=== PATIENT | male | born 1995 | race Caucasian/White ===

== ENCOUNTER 2022-09-06 20:24 | Emergency (ER) | payer BC ==
[2022-09-06] MEDS ORDERED: TORAdol 30 mg Injection IV ONE (20:48)
[2022-09-06] MEDS ORDERED: Sodium Chloride 0.9% 1000 ML 1,000 ML IV STA (20:48)
[2022-09-06] MEDS ORDERED: Zofran 4 MG/2 ML VIAL IV ONE (20:48)
[2022-09-06] MEDS ORDERED: Zofran 4 MG/2 ML VIAL ONE (20:54)
[2022-09-06] MEDS ORDERED: Sodium Chloride 0.9% 1000 ML 1,000 ML ONE (20:55)
[2022-09-06] MEDS ORDERED: TORAdol 30 mg Injection ONE (20:55)
[2022-09-06 20:58] LABS: BASOPHIL % 0.5 % (0.0-0.4); Basophil (Absolute #) 0.05 x10^3/uL (0-0.4); Eosinophil % 2.4 % (0.00-5.0); Eosinophil (Absolute #) 0.22 x10^3/uL (0-0.5); Hematocrit 43.2 % (42-50); Hemoglobin 15.2 g/dL (12.5-18.0); IMMATURE GRAN # 0.02 x10^3u/L (0.00-0.03); IMMATURE GRAN % 0.2 % (0.00-0.4); Lymphocyte (Absolute #) 1.29 x10^3/uL (1.0-4.6); Lymphocytes % 14.1 % (24.0-44.0); Mean Cell Volume 81.8 fL (78-100); Mean Corpuscular Hemoglobin 28.8 pg (26-32); Mean Corpuscular Hgb Concent. 35.2 g/dL (32-36); Mean Platelet Volume 10.3 fL (7.5-11.0); Monocyte (Absolute #) 0.79 x10^3/uL (0.0-1.3); Monocytes % 8.6 % (0.0-12.0); Neutrophil % 74.2 % (36.0-66.0); Platelet Count 214 x10^3/uL (150-450); Red Blood Count 5.28 x10^6/uL (4.1-5.6); White Blood Count 9.2 x10^3/uL (4.0-10.5)
[2022-09-06 21:08] LABS: ALBUMIN 3.8 g/dL (3.5-5.0); ALKALINE PHOSPHATASE 147 U/L (38-126); ANION GAP 16.7 MEQ/L (5-15); BLOOD UREA NITROGEN 28 mg/dL (9-20); CHLORIDE 91 mmol/L (98-107); Calcium 9.3 mg/dL (8.4-10.2); Carbon Dioxide 28 mmol/L (22-30); Creatinine 1 1.17 mg/dL (0.66-1.25); EST GLOMERULAR FILTRATION RATE > 60.0 ML/MIN; Glucose 431 mg/dL (74-106); LIPASE 703 U/L (23-300); Potassium 4.3 mmol/L (3.5-5.1); SGOT/AST 37 U/L (17-59); SGPT/ALT 66 U/L (0-50); SODIUM 132 mmol/L (137-145); Total Protein 6.8 g/dL (6.3-8.2)
--- NOTE | 2022-09-06 21:18 | ERPHSYRPT ---
- History of Present Illness Time Seen by Provider: 09/06/22 20:26 Source: patient Exam Limitations: no limitations Patient Subjective Stated Complaint: pt states he has not been feeling well for last few days and today has been having chest pain at work since approx 1800. states pain is in rt chest and pressure with intermittent sharp pain. Triage Nursing Assessment: pt alert and oriented, answers questions approp. pt ambulates into room with steady gait. skin warm and dry. heart rate 98 sinus rhythm on monitor, sinus rhythm on monitor. peripheral pulse intact. Physician History: 27-year-old fairly healthy male presented in the ER with chief complaint of chest pain. Patient reports he has not been feeling well for the last couple of days, had some nausea but no vomiting. Feels weak fatigued tired and dehydr ated. Earlier he started to have some pain in the right lower chest without difficulty breathing or palpitations. Denies any abdominal pain or back pain. Patient has history of type I diabetic mellitus and neuropathy and complaining of increasing pain all over the extremities. Timing/Duration: day(s) (2), gradual onset, worse Severity: moderate Associated Symptoms: nausea, chest pain, headaches, malaise, weakness, No s hortness of breath Allergies/Adverse Reactions: cefaclor [From [facility]] Allergy (Intermediate, Verified 09/06/22 20:47) Penicillins Allergy (Intermediate, Verified 09/06/22 20:47) Home Medications: Escitalopram Oxalate 20 mg PO DAILY 09/06/22 [History] Gabapentin [Neurontin ] 300 mg PO BID PRN PRN 09/06/22 [History] Insulin Glargine,Hum.rec.anlog [Basaglar Kwikpen U-100] 32 unit SQ BID 09/06/22 [History] buPROPion HCL [Bupropion HCl] 100 mg PO DAILY 09/06/22 [History] Hx Tetanus, Diphtheria Vaccination/Date Given: No (unsure) Hx Influenza Vaccination/Date Given: No Hx Pneumococcal Vaccination/Date Given: No Immunizations Up to Date: No Travel Risk - International Travel Have you traveled outside of the country in past 3 weeks: No - Coronavirus Screening Are you exhibiting any of the following symptoms?: No Close contact with a COVID-19 positive Pt in past 14-21 Days: No - Vaccine Status Have you recieved a Covid-19 vaccination: No - Review of Systems Constitutional: Fatigue, Weakness Eyes: No Symptoms Ears, Nose, & Throat: No Symptoms Respiratory: No Symptoms Cardiac: Chest Pain Abdominal/Gastrointestinal: Nausea Genitourinary Symptoms: No Symptoms Musculoskeletal: Myalgias Skin: No Symptoms Neurological: No Symptoms Psychological: No Symptoms Endocrine: No Symptoms Hematologic/Lymphatic: No Symptoms Immunological/Allergic: No Symptoms - Past Medical History Neurological History: Peripheral Neuropathy Endocrine Medical History: Diabetes Type I Psycho-Social History: Anxiety, Depression Other Medical History: heart murmer - Past Surgical History Past Surgical History: Yes Gastrointestinal: Hernia Repair Male Surgical History: Testicular Surgery Other Surgical History: testicular torsion, hernia repair, joyce fundoplication - Social History Smoking Status: Former smoker Exposure to second hand smoke: Yes Drug Use: none Patient Lives Alone: Yes - Nursing Vital Signs Nursing Vital Signs: Initial Vital Signs Temperature 98.5 F 09/06/22 20:25 Pulse Rate 95 H 09/06/22 20:25 Respiratory Rate 16 09/06/22 20:25 Blood Pressure 128/77 09/06/22 20:25 O2 Sat by Pulse Oximetry 95 09/06/22 20:25 Pain Scale Pain Intensity 6 - Physical Exam General Appearance: no apparent distress, alert Eye Exam: PERRL/EOMI Ears, Nose, Throat Exam: normal ENT inspection, TMs normal, pharynx normal, moist mucous membranes Neck Exam: normal inspection, non-tender, supple, full range of motion Respiratory Exam: normal breath sounds, lungs clear Cardiovascular Exam: regular rate/rhythm, normal heart sounds Gastrointestinal/Abdomen Exam: soft, normal bowel sounds, No tenderness, No distention, No guarding Back Exam: normal inspection, normal range of motion Extremity Exam: normal inspection, normal range of motion, pelvis stable Neurologic Exam: alert, oriented x 3, cooperative, wire inserter II-XII nml as tested, normal mood/affect, nml cerebellar function, nml station & gait, sensation nml Skin Exam: normal color SpO2 Interpretation: normal SpO2: 95 O2 Delivery: Room Air - Course EKG Interpreted by Me: RATE (93), Sinus Rhythm, NORMAL AXIS, prolonged QT interval, Non-specific ST Changes, Other (Nonspecific T wave changes) Ordered Tests: Active Orders 24 hr Category Date Time Status EKG-ER Only STAT Care 09/06/22 20:48 Active IV Insertion STAT Care 09/06/22 20:48 Active ABDOMEN AND PELVIS W/0 CONTRAS [CT] Stat Exams 09/06/22 22:45 Completed CHEST 1 VIEW (PORTABLE) Stat Exams 09/06/22 20:48 Taken CBC W DIFF Stat Lab 09/06/22 20:55 Completed CMP Stat Lab 09/06/22 20:55 Completed CULTURE,URINE Stat Lab 09/06/22 22:56 Received LIPASE Stat Lab 09/06/22 20:55 Completed Lactic Acid Stat Lab 09/06/22 21:04 Completed POCT GLUCOSE Stat Lab 09/06/22 23:47 Completed TROPONIN Q4H Lab 09/06/22 20:55 Completed TROPONIN Q4H Lab 09/07/22 01:00 Ordered TROPONIN Q4H Lab 09/07/22 05:00 Ordered UA W/RFX UR CULTURE Stat Lab 09/06/22 22:56 Completed Medication Summary Discontinued Medications Generic Name Dose Route Start Last Admin Trade Name Freq PRN Reason Stop Dose Admin Sodium Chloride 1,000 mls @ 999 mls/hr 09/06/22 20:48 09/06/22 22:57 Sodium Chloride 0.9% 1000 Ml IV 09/06/22 21:48 Infused .Q1H1M STA Infusion Sodium Chloride Confirm 09/06/22 20:55 Sodium Chloride 0.9% 1000 Ml Administered 09/06/22 20:56 Dose 1,000 mls @ ud .ROUTE .STK-MED ONE Insulin Human Regular 6 unit 09/07/22 00:27 Insulin Regular, Human 1 Unit IV 09/07/22 00:28 STAT ONE Ketorolac Tromethamine 30 mg 09/06/22 20:48 09/06/22 20:59 Ketorolac Tromethamine 30 Mg/Ml Inj IV 09/06/22 20:49 30 mg STAT ONE Administration Ketorolac Tromethamine Confirm 09/06/22 20:55 Ketorolac Tromethamine 30 Mg/Ml Inj Administered 09/06/22 20:56 Dose 30 mg .ROUTE .STK-MED ONE Ondansetron HCl 4 mg 09/06/22 20:48 09/06/22 20:59 Ondansetron Hcl 4 Mg/2 Ml Vial IV 09/06/22 20:49 4 mg STAT ONE Administration Ondansetron HCl Confirm 09/06/22 20:54 Ondansetron Hcl 4 Mg/2 Ml Vial Administered 09/06/22 20:55 Dose 4 mg .ROUTE .K-MED ONE Lab/Rad Data: Laboratory Result Diagrams 09/06/22 20:55 09/06/22 20:55 Laboratory Results 09/06/22 09/06/22 09/06/22 Range/Units 23:47 22:56 21:04 WBC (4.0-10.5) x10^3/uL RBC (4.1-5.6) x10^6/uL Hgb (12.5-18.0) g/dL Hct (42-50) % MCV (78-100) fL MCH (26-32) pg MCHC (32-36) g/dL RDW (11.5-14.0) % Plt Count (150-450) x10^3/uL MPV (7.5-11.0) fL Gran % (36.0-66.0) % Immature Gran % (Auto) (0.00-0.4) % Nucleat RBC Rel Count (0.00-0.1) % Eos # (Auto) (0-0.5) x10^3/uL Immature Gran # (Auto) (0.00-0.03) x10^3u/L Absolute Lymphs (auto) (1.0-4.6) x10^3/uL Absolute Monos (auto) (0.0-1.3) x10^3/uL Absolute Nucleated RBC (0.00-0.01) x10^3u/L Lymphocytes % (24.0-44.0) % Monocytes % (0.0-12.0) % Eosinophils % (0.00-5.0) % Basophils % (0.0-0.4) % Absolute Granulocytes (1.4-6.9) x10^3/uL Basophils # (0-0.4) x10^3/uL Sodium (137-145) mmol/L Potassium (3.5-5.1) mmol/L Chloride (98-107) mmol/L Carbon Dioxide (22-30) mmol/L Anion Gap (5-15) MEQ/L BUN (9-20) mg/dL Creatinine (0.66-1.25) mg/dL Estimated GFR ML/MIN Glucose (74-106) mg/dL POC Glucometer 369 H (74 to 106) mg/dL Lactic Acid 1.6 (0.4-2.0) Calcium (8.4-10.2) mg/dL Total Bilirubin (0.2-1.3) mg/dL AST (17-59) U/L ALT (0-50) U/L Alkaline Phosphatase (38-126) U/L Troponin I (0.000-0.034) ng/mL Serum Total Protein (6.3-8.2) g/dL Albumin (3.5-5.0) g/dL Lipase (23-300) U/L Urine Color Yellow (Yellow) Urine Appearance Clear (Clear) Urine pH 5.5 (4.6-8.0) Ur Specific [place] 1.025 (1.005-1.030) Urine Protein 100 A (Negative) Urine Glucose (UA) >=1000 A (Negative) mg/dL Urine Ketones Trace A (Negative) Urine Blood Trace (Negative) Urine Nitrite Negative (Negative) Urine Bilirubin Negative (Negative) Urine Urobilinogen 1.0 A (0.2) mg/dL Ur Leukocyte Esterase Negative (Negative) U Hyaline Cast (Auto) NONE SEEN (0-2) /LPF Urine Microscopic RBC 0-2 (0-5) /HPF Urine Microscopic WBC 0-2 (0-5) /HPF Ur Epithelial Cells None Seen (None Seen) /HPF Urine Bacteria None Seen (None Seen) /HPF Urine Culture Reflexed YES (NO) 09/06/22 09/06/22 09/06/22 Range/Units 20:55 20:55 20:55 WBC 9.2 (4.0-10.5) x10^3/uL RBC 5.28 (4.1-5.6) x10^6/uL Hgb 15.2 (12.5-18.0) g/dL Hct 43.2 (42-50) % MCV 81.8 (78-100) fL MCH 28.8 (26-32) pg MCHC 35.2 (32-36) g/dL RDW 13.0 (11.5-14.0) % Plt Count 214 (150-450) x10^3/uL MPV 10.3 (7.5-11.0) fL Gran % 74.2 H (36.0-66.0) % Immature Gran % (Auto) 0.2 (0.00-0.4) % Nucleat RBC Rel Count 0.0 (0.00-0.1) % Eos # (Auto) 0.22 (0-0.5) x10^3/uL Immature Gran # (Auto) 0.02 (0.00-0.03) x10^3u/L Absolute Lymphs (auto) 1.29 (1.0-4.6) x10^3/uL Absolute Monos (auto) 0.79 (0.0-1.3) x10^3/uL Absolute Nucleated RBC 0.00 (0.00-0.01) x10^3u/L Lymphocytes % 14.1 L (24.0-44.0) % Monocytes % 8.6 (0.0-12.0) % Eosinophils % 2.4 (0.00-5.0) % Basophils % 0.5 (0.0-0.4) % Absolute Granulocytes 6.80 (1.4-6.9) x10^3/uL Basophils # 0.05 (0-0.4) x10^3/uL Sodium 132 L (137-145) mmol/L Potassium 4.3 (3.5-5.1) mmol/L Chloride 91 L (98-107) mmol/L Carbon Dioxide 28 (22-30) mmol/L Anion Gap 16.7 H (5-15) MEQ/L BUN 28 H (9-20) mg/dL Creatinine 1.17 (0.66-1.25) mg/dL Estimated GFR > 60.0 ML/MIN Glucose 431 H (74-106) mg/dL POC Glucometer (74 to 106) mg/dL Lactic Acid (0.4-2.0) Calcium 9.3 (8.4-10.2) mg/dL Total Bilirubin 0.90 (0.2-1.3) mg/dL AST 37 (17-59) U/L ALT 66 H (0-50) U/L Alkaline Phosphatase 147 H (38-126) U/L Troponin I < 0.012 (0.000-0.034) ng/mL Serum Total Protein 6.8 (6.3-8.2) g/dL Albumin 3.8 (3.5-5.0) g/dL Lipase 703 H (23-300) U/L Urine Color (Yellow) Urine Appearance (Clear) Urine pH (4.6-8.0) Ur Specific [place] (1.005-1.030) Urine Protein (Negative) Urine Glucose (UA) (Negative) mg/dL Urine Ketones (Negative) Urine Blood (Negative) Urine Nitrite (Negative) Urine Bilirubin (Negative) Urine Urobilinogen (0.2) mg/dL Ur Leukocyte Esterase (Negative) U Hyaline Cast (Auto) (0-2) /LPF Urine Microscopic RBC (0-5) /HPF Urine Microscopic WBC (0-5) /HPF Ur Epithelial Cells (None Seen) /HPF Urine Bacteria (None Seen) /HPF Urine Culture Reflexed (NO) - Progress Progress: improved, re-examined Progress Note: 09/07/22 00:28 27-year-old fairly healthy male presented in the ER with chief complaint of chest pain. Patient reports he has not been feeling well for the last couple of days, had some nausea but no vomiting. Feels weak fatigued tired and dehydrated. Earlier he started to have some pain in the right lower chest without difficulty breathing or palpitations. Denies any abdominal pain or back pain. Patient has history of type I diabetic mellitus and neuropathy and complaining of increasing pain all over the extremities. Is given fluids along with symptomatic treatment, on reevaluation feeling much better. Work-up showed normal white count, chemistries showed some element of dehydration and elevated glucose which is improved after fluids and will give 6 units of IV insulin. Patient is not in DKA, gap of 16.5 and bicarb of 28 and trace ketones in the urine which is probably from dehydration. Normal lactate. Patient has elevated lipase of 700s but no epigastric or periumbilical tenderness/pain. I have obtained CT abdomen pelvis which is negative for acute pancreatitis and also no other acute abdominal pelvic findings. Chest x-ray negative for any acute cardio pulmonary findings reviewed by me, official report is pending. Patient has EKG normal sinus rhythm with no acute ischemic changes and negative initial troponins as well. I do not think patient's symptoms are cardiac but more of a viral etiology/flulike symptoms, recommended supportive care and outpatient follow-up. Do not think patient needs further work-up in the ER and is stable for discharge with outpatient follow-up. Counseled on glucose monitoring. Discussed signs symptoms of worsening needing return to ER which he seems understanding. 09/07/22 00:31 Counseled pt/family regarding: lab results, diagnosis, need for follow-up, rad results Medical Desision Making - Diagnostic Testing Diagnostic test were ordered, analyzed, and reviewed by me: Yes Radiological Interpretation: Interpreted by me, Reviewed by me, Teleradiologist Report - Departure Departure Disposition: Home Clinical Impression: Viral syndrome, Atypical chest pain, Elevated lipase, Hyperglycemia Condition: Stable Critical Care Time: No Referrals: YADY GAN DO [Primary Care Provider] - Follow up with PCP 2 days Instructions: Angina (DC) Additional Instructions: Clear liquids for next 24 to 48 hours, Tylenol as needed for pain. Increase hydration. Monitor your blood sugar regularly, keep a log and follow-up with primary care/endocrinology for reevaluation. Return to ER for persistent chest pain, difficulty breathing develop fever chills etc.
[2022-09-06 23:07] LABS: Appearance Clear (Clear); Bacteria None Seen /HPF (None Seen); Bilirubin Negative (Negative); Blood Trace (Negative); Epithelial Cells None Seen /HPF (None Seen); Glucose, Urine >=1000 mg/dL (Negative); Hyaline Casts NONE SEEN /LPF (0-2); Ketones Trace (Negative); Leukocyte Esterase Negative (Negative); Nitrite Negative (Negative); Ph 5.5 (4.6-8.0); Protein,Urine Dip 100 (Negative); RBC 0-2 /HPF (0-5); Specific Gravity 1.025 (1.005-1.030); WBC 0-2 /HPF (0-5)
[2022-09-06 23:09] LABS: ADD URINE CULTURE? YES (NO)
--- NOTE | 2022-09-07 00:16 | XRAY ---
CLINICAL HISTORY:Rule out pancreatitis, nausea COMPARISON:None; TECHNIQUES:CT of the abdomen and pelvis was performed with axial images as well as sagittal and coronal reconstruction images without intravenous contrast. DLP: 353.64 mGy*cm. CTDI: 6.08; FINDINGS: The liver is normal in size, and morphology appears unremarkable with no intrahepatic or extrahepatic bile duct dilation. Unremarkable appearing gallbladder with no stones wall thickening or pericholecystic inflammatory changes or fluid. Unremarkable appearing pancreas. No pancreatic mass or ductal dilatation is seen. Unremarkable appearing spleen. The adrenal glands are normal. The kidneys appear unremarkable with no cysts, calculi, masses, or hydronephrosis. The ureters are normal with no stones. Unremarkable abdominal aorta without specific evidence of aneurysm or dissection. IVC is normal. Small hiatal hernia is seen. The stomach appears unremarkable. Unremarkable appearing duodenum. Small Bowel and colon are non-distended with no abnormality. No free air and no ascites. No free intraperitoneal air is seen. Bladder is unremarkable with no stones. Prostate is not enlarged. No osseous lesion seen in the visualized skeleton. IMPRESSION: 1-No CT findings suggest pancreatitis. 2-Small hiatal hernia. Electronically Signed by: Josiane Maharaj MD. (09/06/2022 23:13:57 [employer])
[2022-09-07] MEDS ORDERED: HUMULIN R IV ONE (00:27)
[2022-09-07 00:32] VITALS: O2SAT 95
[2022-09-07] MEDS ORDERED: HUMULIN R ONE (00:56)
[2022-09-07 01:48] VITALS: BP 154/88; PULSE 93
--- NOTE | 2022-09-07 08:31 | XRAY ---
Indication: Chest pain. Comparison: None Portable chest inflated and clear. Heart and mediastinal structures within normal limits. Bony thorax intact. Impression: Nonacute chest.
== END 2022-09-07 01:56 | disposition home or self-care (01) ==
LOC: ED 20:24
DX: B34.9 Viral infection, unspecified (principal); R07.89 Other chest pain; R74.8 Abnormal levels of other serum enzymes; E10.65 Type 1 diabetes mellitus with hyperglycemia; R11.0 Nausea; R53.1 Weakness; R53.83 Other fatigue; E10.40 Type 1 diabetes mellitus with diabetic neuropathy, unspecified; Z79.899 Other long term (current) drug therapy; Z28.310 Unvaccinated for COVID-19
CPT/HCPCS: 36000; 36415; 71045; 74176; 80053; 81001; 82947; 83605; 83690; 84484; 85025; 87086; 93005; 96374; 96375; 99284; J1815; J1885; J2405